=== PATIENT | male | born 1975 | race African-American/Black ===

== ENCOUNTER 2021-05-31 01:07 | Emergency (ER) | payer MEDICAID ==
[~2021-05-31] VITALS: Ht 177.8 cm; Wt 72.6 kg
[2021-05-31 02:47] VITALS: BP 132/69
--- NOTE | 2021-05-31 02:50 | NUR ---
BIBSELF C/O REQUESTING FOR UPDATE TDAP AND "SYPHILIS TEST".PT ALERT AND ORIENTED X3. AMBULATORY WITH NON LABORED BREATHING.
[2021-05-31] MEDS ORDERED: TDAP [DIPH/PERTUSSIS/TET] 0.5 ML VIAL IM ONE ×2 (03:00→04:55)
== END 2021-05-31 04:59 | disposition home or self-care (01) ==
LOC: ER 01:22
DX: Z11.3 Encounter for screening for infections with a predominantly sexual mode of transmission (principal)
CPT/HCPCS: 36415; 86592; 87491; 87591; 90715